=== PATIENT | female | born 1985 | race Caucasian/White ===

== ENCOUNTER → 2020-10-14 14:50 | Outpatient (CLI) | payer OTHER, SELFPAY ==
--- NOTE | ~2020-10-14 | US_ITS ---
EXAMINATION: US breast LT complete HISTORY: Mastodynia TECHNIQUE: Ultrasound is performed in all four quadrants of the left breast including the subareolar region as well as the lateral breast and chest wall at the site of clinical concern FINDINGS: No suspicious cystic or solid mass is identified in the breast. There is a benign-appearing lymph node at the far lateral aspect of the breast in the chest wall at the 3:00 location. IMPRESSION: No suspicious sonographic correlate is identified for the patient's breast pain. A normal appearing l ymph node is seen. Further evaluation at this time should be based on clinical assessment. Continued follow-up physical examination is recommended. BI-RADS Category 1: Negative Reviewed, dictated and finalized at location A. R[employer]MENT [employer]ICIAN IMPRESSION: No suspicious sonographic correlate is identified for the patient's breast pain . A normal appearing lymph node is seen. Further evaluation at this time should be based on clinical assessment. Continued follow-up physical examination is r ecommended. BI-RADS Category 1: Negative
== END ==
PROVIDERS: PCP Family Medicine; Visit Provider Obstetrics & Gynecology
DX: N64.4 Mastodynia (principal)
CPT/HCPCS: 76641